=== PATIENT | male | born 1975 | race African-American/Black ===

== ENCOUNTER 2017-09-24 13:33 | Emergency (ER) | payer OTHER ==
[2017-09-24] MEDS ORDERED: Ketorolac Tromethamine 30 MG/ML VIAL ONE (13:57)
[2017-09-24] MEDS ORDERED: Morphine 4 MG/ML Carpuject ONE (13:58)
--- NOTE | 2017-09-24 14:17 | RAD ---
RADIOGRAPH LEFT SHOULDER 3 VIEWS: Date: 09/24/17 Time: 1357 hours HISTORY: 42-year-old male status post traumatic injury to left shoulder (trampled by cattle). Persistent pain. COMPARISON: None. FINDINGS: The distal tip of the clavicle is superiorly dislocated from the acromion a distance of 1.5 shaft wid ths. No fracture is identified. There is no dislocation of the glenohumeral joint. IMPRESSION: Grade III left acromioclavicular joint separation. POS: [facility]
== END 2017-09-24 14:41 | disposition home or self-care (01) ==
LOC: ERS 13:33
DX: S43.102A Unspecified dislocation of left acromioclavicular joint, initial encounter (principal); F17.210 Nicotine dependence, cigarettes, uncomplicated; W55.82XA Struck by other mammals, initial encounter; Y99.0 Civilian activity done for income or pay
CPT/HCPCS: 96372; J1885; J2270